=== PATIENT | female | born 1965 | race African-American/Black ===

== ENCOUNTER 2017-12-02 12:32 | Emergency (ER) | payer OTHER ==
--- NOTE | ~2017-12-02 | EKG ---
[address] [place] [place] [address] ELECTROCARDIOGRAM REPORT Name: WALE CABRERA Room #: [facility]#: [id number] Admission: Attend Phys: Discharge: Date of : 61 Report #: [id number] THIS REPORT FOR: //name// ED Test Date: 2017-12-02 Test Time: 12:45:20 Pat Name: WALE CABRERA Department: Room: Gender: F [employer] Polisher: NICK : [id number] Requested By: Mirna Mccullough Order Number: [id number] MD: Daniel Zheng Measurements Intervals [place] Rate: 90 P: -2 CO: 148 QRS: 14 QRSD: 82 T: 10 QT: 341 QTc: 418 Interpretive Statements Sinus rhythm Compared to ECG 11/19/2007 12:47:48 No significant changes Electronically Signed On 12-02-2017 13:19:38 [employer] by Daniel Zheng [email or web address] <ELECTRONICALLY SIGNED> By: Daniel Zheng MD 12/02/17 1319 1245 1245 Daniel Zheng MD /JONATAN
[2017-12-02 13:09] LABS: BASOPHILS 1.8 % (0.0-2.0); EOSINOPHILS 1.7 % (0.0-3.0); HEMATOCRIT 42.3 % (37.0-47.0); HEMOGLOBIN 14.1 gm/dL (12.0-15.0); LYMPHOCYTES 29.5 % (24.0-44.0); MCH 29.6 pg (26.0-34.0); MCHC 33.2 g/dL (28.0-37.0); MONOCYTES 8.6 % (1.0-8.0); PLATELET COUNT 309 thou/uL (150-400); POLYS 58.4 % (36.0-66.0); RBC 4.76 mil/uL (4.20-5.00); RDW 14.1 % (10.5-14.5); WBC 8.5 thou/uL (4.0-11.0)
[2017-12-02 13:11] LABS: ANION GAP 10 mmol/L (7-16); BUN 16 mg/dL (7-18); CALCIUM 9.5 mg/dL (8.5-10.1); CHLORIDE 103 mmol/L (98-107); CO2 27 mmol/L (21-32); CREATININE 0.7 mg/dL (0.6-1.0); GLUCOSE 110 mg/dL (74-106); POTASSIUM 3.4 mmol/L (3.5-5.1); SODIUM 140 mmol/L (136-145)
[2017-12-02 13:20] LABS: TROPONIN-I < 0.04 ng/mL (<0.06)
[2017-12-02] MEDS ORDERED: NORCO 5-325 TA1 EACH PO ×2 (15:02→15:20)
== END 2017-12-02 16:40 | disposition home or self-care (01) ==
LOC: ER 12:32
PROVIDERS: Emergency Medicine
DX: R07.89 Other chest pain (principal); E87.6 Hypokalemia; I10 Essential (primary) hypertension; Z90.710 Acquired absence of both cervix and uterus

== ENCOUNTER 2019-03-06 09:52 | Emergency (ER) | payer OTHER ==
[~2019-03-06] VITALS: Ht 160 cm; Wt 90.7 kg
[~2019-03-06 09:52] MED LIST: NORCO 5-325 TA1 EACH PO
[2019-03-06] MEDS ORDERED: ESTRADIOL 1 MG T1 M1 PO (10:10)
[2019-03-06] MEDS ORDERED: IRBESARTAN-HCT1 EAC1 PO (10:11)
[2019-03-06] MEDS ORDERED: NORVASC10 MG PO (10:11)
[2019-03-06] MEDS ORDERED: VITAMIN D2000 UNIT PO (10:12)
[2019-03-06] MEDS ORDERED: MOBIC7.5 MG PO (11:51)
[2019-03-06] MEDS ORDERED: NORCO 5-325 TA1 EACH PO (12:17)
[2019-03-06 12:42] VITALS: BP 124/71
== END 2019-03-06 12:40 | disposition home or self-care (01) ==
LOC: ER 09:52
DX: S40.011A Contusion of right shoulder, initial encounter (principal); S20.219A Contusion of unspecified front wall of thorax, initial encounter; Z90.710 Acquired absence of both cervix and uterus; I10 Essential (primary) hypertension; V89.2XXA Person injured in unspecified motor-vehicle accident, traffic, initial encounter; Y92.89 Other specified places as the place of occurrence of the external cause; Y93.89 Activity, other specified; Y99.8 Other external cause status